=== PATIENT | female | born 1980 | race Caucasian/White ===

== ENCOUNTER 2017-07-31 13:05 | Emergency (ER) | payer OTHER ==
[~2017-07-31] VITALS: Ht 157.5 cm; Wt 79.4 kg
[2017-07-31 13:13] VITALS: Ht 157.5 cm; Wt 79.4 kg
[2017-07-31 17:01] VITALS: BP 109/78
== END 2017-07-31 17:01 | disposition home or self-care (01) ==
LOC: ED 13:05
DX: J09.X2 Influenza due to identified novel influenza A virus with other respiratory manifestations (principal); S39.012A Strain of muscle, fascia and tendon of lower back, initial encounter; X58.XXXA Exposure to other specified factors, initial encounter; Y93.89 Activity, other specified; Y92.89 Other specified places as the place of occurrence of the external cause; Y99.8 Other external cause status
CPT/HCPCS: 87804; J1885